=== PATIENT | female | born 1985 | race Caucasian/White ===

== ENCOUNTER 2017-03-28 14:20 | Emergency (ER) | payer OTHER ==
[~2017-03-28] VITALS: Ht 165.1 cm; Wt 54.4 kg
[~2017-03-28 14:20] MED LIST: HYDR15SO4 PO; METR70GE2 VG; POLY10DR EACHEYE
--- NOTE | 2017-03-28 17:13 | RAD ---
OB ultrasound less than 14 weeks to include transabdominal and transvaginal imaging 03/28/2017 Clinical history: Left-sided pelvic pain with positive test. Unknown LMP. Technique: Using the distended urinary bladder as a sonographic window, a real-time ultrasound examination of the pelvis was performed. Additionally in attempt to better evaluate the uterus and adnexa, a transvaginal ultrasound study was performed. Multiple images were obtained. Findings: The uterus is within normal limits in size. It measures 7.8 x 4.4 x 5.8 cm in longitudinal, transverse, and AP dimensions. The endometrial echo complex is prominent measuring 2.1 cm in thickness. No gestational sac is seen within the uterus. No focal abnormality of the uterus is seen. Both ovaries are within normal limits in size. The right ovary measures 2.4 x 2.0 x 2.0 cm in size. The left ovary measures 2.6 x 2.8 x 2.3 cm in size. A 1 cm anechoic structure is seen within the left ovary which may represent a follicle/corpus luteum. A small amount of free fluid is seen within the pelvic cul-de-sac. Impression: No IUP is identified. The above ultrasound findings could be seen with a very early IUP, missed spontaneous or possibly due to occult ectopic . Clinical correlation and correlation with patient's serial BHCG level is recommended.
[2017-03-28 17:23] LABS: BASO % 1 % (0-3); EOS % 0 % (0-3); HEMATOCRIT 39.2 % (36.0-47.0); HEMOGLOBIN 13.4 g/dL (12.0-15.5); LYMPH # 2.5 x10^3/uL (1.0-4.8); LYMPH % 29 % (24-48); MEAN CORPUSCULAR HEMOGLOBIN 31 pg (25-35); MEAN CORPUSCULAR HGB CONC 34 g/dL (31-37); MEAN CORPUSCULAR VOLUME 91 fL (79-100); MONO % 7 % (0-9); NEUT % 63 % (31-73); PLATELET COUNT 356 x10^3/uL (140-400); RED BLOOD COUNT 4.29 x10^6/uL (3.50-5.40); RED CELL DISTRIBUTION WIDTH 12.9 % (11.5-14.5); WHITE BLOOD COUNT 8.5 x10^3/uL (4.0-11.0)
[2017-03-28 17:38] LABS: CALCIUM 8.8 mg/dL (8.5-10.1); CREATININE 0.7 mg/dL (0.6-1.0); GFR 97.6; POTASSIUM 3.6 mmol/L (3.5-5.1)
[2017-03-28 17:44] LABS: ALBUMIN 3.8 g/dL (3.4-5.0); ALBUMIN/GLOBULIN RATIO 1.2 (1.0-1.7); TOTAL BILIRUBIN 0.4 mg/dL (0.2-1.0); TOTAL PROTEIN 7.1 g/dL (6.4-8.2)
[2017-03-28 18:05] VITALS: BP 118/70
--- NOTE | 2017-03-28 18:21 | PHYS DOC ---
Past Medical History Past Medical History: Cancer, Other Additional Past Medical Histor: CERVICAL CANCER, bacterial vaginosis Past Surgical History: Other Additional Past Surgical Histo: , D&C, LAPROSCOPY Alcohol Use: None Drug Use: None Adult General Chief Complaint Chief Complaint: ABDOMINAL PAIN IN HPI HPI Patient is a 31 year old female who presents to the ED with left lower quadrant abdominal pain that began at 4 AM today. She went to the doctor's office and had a positive urine test and was sent to the ED. Patient states this pain feels kind of like an ovarian cyst. She had an ectopic 8 years ago which was treated with an injection and then laparoscopic surgery. She thinks they removed her tube but is not sure which one. She has irregular periods. She thought that she couldn't get because she's been sexually active for the last 8 years without contraception. She is not sure of her LMP, it might have been around February 23. Patient has had no vaginal bleeding since then. Patient had a cone biopsy for cervical cancer in the past. Review of Systems Review of Systems Constitutional: Denies fever or chills [] GI: Denies nausea, vomiting : As in history of present illness Allergies Allergies Allergies Coded Allergies Type Severity Reaction Last Updated Verified No Known Drug Allergies 08/01/16 No Physical Exam Physical Exam Constitutional: Well developed, well nourished, no acute distress, non-toxic appearance. [] HENT: Normocephalic, atraumatic, bilateral external ears normal, nose normal. [ ] Eyes: conjunctiva normal, no discharge. [] Neck: Normal range of motion, no stridor. [] Cardiovascular:Heart rate regular rhythm, no murmur [] Lungs & Thorax: Bilateral breath sounds clear to auscultation [] Abdomen: Bowel sounds normal, soft, no tenderness, no masses, no pulsatile masses. [] Skin: Warm, dry, no erythema, no rash. [] Extremities: No tenderness, no cyanosis, no clubbing, ROM intact, no edema. [] Neurologic: Alert and oriented X 3, normal motor function, normal sensory function, no focal deficits noted. [] Current Patient Data Vital Signs Vital Signs Date Time Temp Pulse Resp B/P (MAP) Pulse Ox O2 Delivery O2 Flow Rate FiO2 03/28/17 18:05 70 18 118/70 (86) 97 Room Air 03/28/17 15:06 98.7 98.7 Lab Values Laboratory Tests Test 03/28/17 14:15 03/28/17 16:56 POC Urine HCG, Qualitative Hcg positive (Negative) White Blood Count 8.5 x10^3/uL (4.0-11.0) Red Blood Count 4.29 x10^6/uL (3.50-5.40) Hemoglobin 13.4 g/dL (12.0-15.5) Hematocrit 39.2 % (36.0-47.0) Mean Corpuscular Volume 91 fL (79-100) Mean Corpuscular Hemoglobin 31 pg (25-35) Mean Corpuscular Hemoglobin Concent 34 g/dL (31-37) Red Cell Distribution Width 12.9 % (11.5-14.5) Platelet Count 356 x10^3/uL (140-400) Neutrophils (%) (Auto) 63 % (31-73) Lymphocytes (%) (Auto) 29 % (24-48) Monocytes (%) (Auto) 7 % (0-9) Eosinophils (%) (Auto) 0 % (0-3) Basophils (%) (Auto) 1 % (0-3) Neutrophils # (Auto) 5.4 x10^3uL (1.8-7.7) Lymphocytes # (Auto) 2.5 x10^3/uL (1.0-4.8) Monocytes # (Auto) 0.6 x10^3/uL (0.0-1.1) Eosinophils # (Auto) 0.0 x10^3/uL (0.0-0.7) Basophils # (Auto) 0.0 x10^3/uL (0.0-0.2) Maternal Serum HCG Beta Subunit 966 mIU/mL (0-5) H Sodium Level 140 mmol/L (136-145) Potassium Level 3.6 mmol/L (3.5-5.1) Chloride Level 104 mmol/L (98-107) Carbon Dioxide Level 28 mmol/L (21-32) Anion Gap 8 (6-14) Blood Urea Nitrogen 11 mg/dL (7-20) Creatinine 0.7 mg/dL (0.6-1.0) Estimated GFR (Cockcroft-Gault) 97.6 BUN/Creatinine Ratio 16 (6-20) Glucose Level 84 mg/dL (70-99) Calcium Level 8.8 mg/dL (8.5-10.1) Total Bilirubin 0.4 mg/dL (0.2-1.0) Aspartate Amino Transferase (AST) 15 U/L (15-37) Alanine Aminotransferase (ALT) 22 U/L (14-59) Alkaline Phosphatase 54 U/L (46-116) Total Protein 7.1 g/dL (6.4-8.2) Albumin 3.8 g/dL (3.4-5.0) Albumin/Globulin Ratio 1.2 (1.0-1.7) Laboratory Tests 03/28/17 16:56 Laboratory Tests 03/28/17 16:56 EKG EKG [] Radiology/Procedures Radiology/Procedures Findings: The uterus is within normal limits in size. It measures 7.8 x 4.4 x 5.8 cm in longitudinal, transverse, and AP dimensions. The endometrial echo complex is prominent measuring 2.1 cm in thickness. No gestational sac is seen within the uterus. No focal abnormality of the uterus is seen. Both ovaries are within normal limits in size. The right ovary measures 2.4 x 2.0 x 2.0 cm in size. The left ovary measures 2.6 x 2.8 x 2.3 cm in size. A 1 cm anechoic structure is seen within the left ovary which may represent a follicle/corpus luteum. A small amount of free fluid is seen within the pelvic cul-de-sac. Impression: No IUP is identified. The above ultrasound findings could be seen with a very early IUP, missed spontaneous or possibly due to occult ectopic . Clinical correlation and correlation with patient's serial BHCG level is recommended. [] Course & Med Decision Making Course & Med Decision Making Pertinent Labs and Imaging studies reviewed. (See chart for details) 31-year-old female with a history of tubal in the past presents with left lower quadrant pain and a positive urine test. Presentation is concerning for rule out ectopic . I discussed this with the patient. Her beta hCG is 966 so we would not necessarily expect to see anything with certainty on ultrasound. No IUP was identified on ultrasound, but also no extrauterine was seen. Patient does have a [employer] doctor and understands the importance of follow-up. See instructions for plan. Strict return precautions were given. Blood type A+. [] Dragon Disclaimer Dragon Disclaimer This electronic medical record was generated, in whole or in part, using a voice recognition dictation system. Departure Departure Impression: Primary Impression: Left lower quadrant abdominal pain of unknown etiology Additional Impressions: at early stage History of ectopic Disposition: HOME, SELF-CARE Condition: STABLE Referrals: NO PCP (PCP) MOLLY LOPES Jr, MD Patient Instructions: Ectopic , [id number], Threatened Miscarriage, [id number] Additional Instructions: As we discussed, it's possible that your is so early that it is not showing up yet on the ultrasound. Another possibility is that your might be abnormal or and the tube, which would be dangerous. As we discussed, you should be seen in 2 days for a repeat Quantitative beta hCG. This level should double every 48 hours. Doubling every 48 hours is a sign of a healthy , not doubling every 48 hours can be a sign of a not healthy or could be a sign of a tubal . If you have worsened pain, feel faint, or bleeding, return to emergency. Problem Qualifiers JAMARI ELKINS MD Mar 28, 2017 18:21
== END 2017-03-28 18:54 | disposition home or self-care (01) ==
LOC: ER 14:20
DX: O26.891 Other specified pregnancy related conditions, first trimester (principal); R10.32 Left lower quadrant pain; Z3A.00 Weeks of gestation of pregnancy not specified
CPT/HCPCS: 36415; 76801; 80053; 81025; 84702; 85027; 86900; 86901; 99285-25